=== PATIENT | male | born 1995 ===

== ENCOUNTER 2017-01-10 08:59 | Day surgery (SDC) | payer BC ==
[2017-01-10 09:14] VITALS: BMI 19.7
[2017-01-10] MEDS ORDERED: Propofol 10 mg/ml Inj (20 ML) ONE (12:46)
[2017-01-10] MEDS ORDERED: Lactated Ringer's 500 ML IV SCH (13:15)
[2017-01-10 13:29] VITALS: TEMP 99.3
[2017-01-10 13:43] VITALS: O2SAT 98
[2017-01-10 13:56] VITALS: RESP 15
[2017-01-10 14:19] VITALS: BP 117/60; PULSE 67
== END 2017-01-10 14:17 | disposition home or self-care (01) ==
LOC: C.ENDO 08:59
PROVIDERS: ATTEND Internal Medicine Gastroenterology
DX: D12.5 Benign neoplasm of sigmoid colon (principal); K64.0 First degree hemorrhoids; K29.50 Unspecified chronic gastritis without bleeding
CPT/HCPCS: 43239; 45380; 88305; J2704; J7120